=== PATIENT | male | born 1960 | race American Indian/Alaskan Native ===

== ENCOUNTER 2016-09-27 04:54 | Emergency (ER) | payer MEDICAID ==
[2016-09-27 10:20] LABS: Basophils % (Auto) 0.7 % (0.0-1.8); Eosinophils % (Auto) 5.3 % (0.0-4.3); Hematocrit 39.9 % (35.5-45.6); Hemoglobin 12.8 gm/dl (11.8-15.2); Mean Corpuscular HGB Conc 32 % (32-34); Mean Corpuscular Hemoglobin 29 pg (28-32); Mean Corpuscular Volume 89 fl (84-94); Platelet Count 242 K/mm3 (140-440); Red Blood Count 4.46 M/mm3 (3.65-5.03); Red Cell Distribution Width 14.1 % (13.2-15.2)
[2016-09-27 10:31] LABS: Anion Gap 18 mmol/L; Blood Urea Nitrogen 9 mg/dL (9-20); Calcium 9.2 mg/dL (8.4-10.2); Carbon Dioxide 26 mmol/L (22-30); Chloride 99.3 mmol/L (98-107); Glucose 110 mg/dL (75-100); Potassium 4.4 mmol/L (3.6-5.0); Sodium 139 mmol/L (137-145)
[2016-09-27] MEDS ORDERED: TORADOL IM ONE (10:38)
[2016-09-27 10:39] VITALS: BP 143/98
--- NOTE | 2016-09-27 10:42 | Emergency Department Report ---
HPI - General Chief Complaint: Extremity Injury, Upper Time Seen by Provider: 09/27/16 10:31 - HPI HPI: This is a 56-year-old Afro[place] male who presents to the emergency department with a three-day history of pain to the left side of his back that radiates down the left arm. Patient says it feels like previous muscle spasms or muscle pull but this one has been going on longer than his previous episodes. He has tried some Tylenol, supplements, and a previous muscle relaxer and has not received much relief. He denies any restriction to range of motion. He says he woke up with this pain 3 days ago and does not know of any significant trauma. He says he gets this pins and needles feeling that goes down into the fingertips. He denies any chest pain, shortness breath, nausea, vomiting, fever or diaphoresis. He is a former smoker but otherwise denies any past medical history. He does not have a primary care doctor. No recent travel or sick contacts at home. He denies any headache, facial droop, vision change, slurred speech or any neurological deficits. Patient drove himself in to be seen today. ED Past Medical Hx - Medications Home Medications: Home Medications Medication Instructions Recorded Confirmed Last Taken Type HYDROcodone/APAP 5-325 [[place] 1 each PO Q6HR PRN #14 tablet 09/27/16 Unknown Rx 5/325] ED Review of Systems ROS: Stated complaint: LEFT SIDE NUMBNESS Other details as noted in HPI Comment: All other systems reviewed and negative Constitutional: denies: chills, fever Eyes: denies: eye pain, eye discharge, vision change ENT: denies: ear pain, throat pain Respiratory: denies: cough, shortness of breath, wheezing Cardiovascular: denies: chest pain, palpitations Gastrointestinal: denies: abdominal pain, nausea, diarrhea Musculoskeletal: back pain, myalgia. denies: joint swelling Skin: denies: rash, lesions Neurological: paresthesias. denies: headache Physical Exam - Physical Exam Vital Signs: Vital Signs 09/27/16 05:05 Temperature 97.5 F L Pulse Rate 99 H Respiratory 20 Rate Blood Pressure 140/99 O2 Sat by Pulse 99 Oximetry Physical Exam: GENERAL: The patient is well-developed well-nourished. HEENT: Normocephalic. Atraumatic. Extraocular motions are intact. Patient has moist mucous membranes. Pupils equal reactive to light bilaterally. No nystagmus. Tongue is midline. No facial symmetry. NECK: Supple. Trachea is midline. CHEST/LUNGS: Clear to auscultation. There is no respiratory distress noted. HEART/CARDIOVASCULAR: Regular. There is no tachycardia. There is no gallop rub or murmur. ABDOMEN: Abdomen is soft, nontender. Patient has normal bowel sounds. There is no abdominal distention. SKIN: There is no rash. There is no edema. There is no diaphoresis. NEURO: The patient is awake, alert, and oriented. The patient is cooperative. The patient has no focal neurologic deficits. The patient has normal speech and gait. Cranial nerves II through XII grossly intact. No pronator drift or dysmetria. MUSCULOSKELETAL: There is no tenderness or deformity. There is no limitation range of motion. There is no evidence of acute injury. Muscle strength 5 out of 5 for upper and lower extremity bilaterally. Cap refill less than 2 seconds. Radial pulses +2 over 4 bilaterally. BACK: No midline thoracic or lumbar tenderness to palpation or deformity. Patient has some reproducible tenderness to palpation to the left upper thoracic paraspinal muscles with some associated taut musculature through the trapezius muscle. ED Course Vital Signs 09/27/16 05:05 Temperature 97.5 F L Pulse Rate 99 H Respiratory 20 Rate Blood Pressure 140/99 O2 Sat by Pulse 99 Oximetry ED Medical Decision Making - Lab Data Result diagrams: 09/27/16 09:59 09/27/16 09:59 - EKG Data -: EKG Interpreted by Nd EKG shows normal: sinus rhythm, axis, intervals, QRS complexes, ST-T waves Rate: normal - EKG Data When compared to previous EKG there are: previous EKG unavailable Interpretation: normal EKG - Radiology Data Radiology results: image reviewed interpreted by me: Chest x-ray did not show any acute process. Heart is normal shape and size. No effusions. No pneumothorax. No signs of pneumonia seen. X-ray of the left shoulder does not show any fracture, dislocation, or osseous abnormality or any acute process. - Medical Decision Making 56-year-old male presents to the emergency department with complaint of pain to the left upper back with some radiation down the left arm. Patient's pain is musculoskeletal. It is reproducible to palpation and with certain movements of his left arm and shoulder. Patient says that he feels a click when he moves the arm. EKG is normal without ST elevation TX, ischemia or dysrhythmia. On top of this patient denies any chest pain or shortness of breath. Regarding any concern for stroke, the patient would be a 0 on the NIH stroke scale. He describes more of a paresthesia with possible muscle spasm or nerve impingement. Patient's labs have been unremarkable no signs of infection, electrolytes abnormalities, renal insufficiency, glucose abnormalities and the patient has a negative troponin. An x-ray was done of the shoulder and chest did not show any fractures, dislocations, pneumothorax, pneumonia or malignancy. Patient was given a shot of Toradol for his discomfort to start. He will be given some pain medication for home but the patient drove himself in to be seen. He says he has established care with an orthopedist but will be given a referral for primary care clinics in the area. Patient will return to the emergency department with any worsening of his symptoms or any acute distress. - Differential Diagnosis muscle spasm, nerve impingement, TX, costochondritis Critical Care Time: No Critical care attestation.: If time is entered above; I have spent that time in minutes in the direct care of this critically ill patient, excluding procedure time. ED Disposition Clinical Impression: Musculoskeletal pain, Paresthesia Back pain Qualifiers: Back pain location: thoracic back pain Chronicity: acute Back pain laterality: left Qualified Code(s): M54.6 - Pain in thoracic spine Arm pain Qualifiers: Laterality: left Qualified Code(s): M79.602 - Pain in left arm Disposition: DISCHARGED TO HOME OR SELFCARE Is pt being admited?: No Does the pt Need Aspirin: No Condition: Stable Instructions: Back Pain (ED), Paresthesia (ED) Additional Instructions: Please follow-up with your orthopedist. I've given you multiple referrals for primary care physicians as well. Return to the emergency department with any worsening of her symptoms, problems moving or walking, slurred speech, any neurological deficits, or any acute distress. You've been prescribed a medication that is sedating. Therefore this medication cannot be mixed with alcohol, or taken prior to driving, working, or being responsible for children. Prescriptions: HYDROcodone/APAP 5-325 [[place] 5/325] 1 each PO Q6HR PRN #14 tablet PRN Reason: Pain Referrals: PRIMARY CARE, [Primary Care Provider] - 3-5 Days ERIKA FREGOSO MD [Staff Physician] - 3-5 Days [facility] [Outside] - 3-5 Days [facility] [Outside] - 3-5 Days [facility] [Outside] - 3-5 Days Time of Disposition: 11:09
--- NOTE | 2016-09-27 11:44 | XRay Report ---
ROUTINE CHEST, TWO VIEWS: HISTORY: chest pain. The trachea, heart, mediastinal contour, lung burroughs and bony thorax are unremarkable. IMPRESSION: Unremarkable chest x-ray.
--- NOTE | 2016-09-27 13:07 | XRay Report ---
Left shoulder 3 views: History: Shoulder pain. Findings Suspicion of widening of the a.c. joint. No fracture dislocation or soft tissue calcification. Glenohumeral joint appears normal. Impression: Suspicion of widening of a.c. joint.
== END 2016-09-27 11:17 | disposition home or self-care (01) ==
LOC: ED 04:54
DX: M54.6 Pain in thoracic spine (principal); M79.602 Pain in left arm; M79.1 Myalgia; R20.9 Unspecified disturbances of skin sensation; Z87.891 Personal history of nicotine dependence
CPT/HCPCS: 36415; 71020; 73030; 80048; 84484; 85025; 93005; 93010; 96372; 99284; J1885

== ENCOUNTER 2020-09-20 13:29 | Emergency (ER) | payer MEDICAID ==
[2020-09-20 13:49] VITALS: BP 198/115
[2020-09-20] MEDS ORDERED: IBUPROFEN 800 MG TAB PO ONE (14:14)
[2020-09-20] MEDS ORDERED: LIDOCAINE (1%) 10 MG/1 ML VIAL 20 ML MDV INFILTRATI ONE (14:15)
--- NOTE | 2020-09-20 14:17 | Emergency Department Report ---
ED Upper Extremity Inj HPI - General Chief Complaint: Extremity Injury, Upper Stated Complaint: FINGER INJURY/LAC Time Seen by Provider: 09/20/20 14:13 Source: patient Mode of arrival: Ambulatory Limitations: No Limitations - History of Present Illness Initial Comments: The patient was evaluated in the emergency department for symptoms described in the history of present illness. He/she was evaluated in the context of the global COVID-19 pandemic, which necessitated consideration that the patient might be at risk for infection with the virus that causes COVID-19. Institutional protocols and algorithms that pertain to the evaluation of patients at risk for COVID-19 are in a state of rapid change based on information released by regulatory bodies including the CDC and federal and state organizations. These policies and algorithms were followed during the patient's care in the emergency department. Please note that these policies, procedures and recommendations changed on a rapid basis. 60-year-old -[place] male presents to the emergency room reporting he has slammed the door of his car on his left hand hands injured his left index finger and second finger. Patient reports he is right-handed. This happened at home. 1 hour prior to arrival. He is right-handed. He denies any other past medical history but reports her surgical history of bilateral hip replacement. Patient does not know when the last time he had a tetanus shot. MD Complaint: Injury to:: left, finger Onset/Timin -: hour(s) ( [employer]) Other Extremity Injury: Fingers: Left (1st and 2nd) Other Injuries: none Handedness: right Place: home Severity scale (0 -10): 10 Context: injury Associated Symptoms: denies other symptoms Treatments Prior to Arrival: bandage - Related Data Previous Rx's Medication Instructions Recorded Last Taken Type Clindamycin [Clindamycin CAP] 300 mg PO Q8H 10 Days #30 cap 09/20/20 Unknown Rx HYDROcodone/APAP 5-325 [[place] 1 each PO Q6HR PRN #12 tablet 09/20/20 Unknown Rx 5-325 mg TAB] Ibuprofen [Motrin 800 MG tab] 800 mg PO Q8HR PRN #30 tablet 09/20/20 Unknown Rx Allergies Allergy/AdvReac Type Severity Reaction Status Date / Time No Known Allergies Allergy Verified 09/27/16 05:10 ED Review of Systems ROS: Stated complaint: FINGER INJURY/LAC Other details as noted in HPI Comment: All other systems reviewed and negative ED Past Medical Hx - Past Medical History Previous Medical History?: Yes Hx Arthritis: Yes - Surgical History Past Surgical History?: Yes Additional Surgical History: bilat hip replacement. R wrist - Social History Smoking Status: Current Every Day Smoker Substance Use Type: Prescribed - Medications Home Medications: Home Medications Medication Instructions Recorded Confirmed Last Taken Type Clindamycin [Clindamycin CAP] 300 mg PO Q8H 10 Days #30 cap 09/20/20 Unknown Rx HYDROcodone/APAP 5-325 [[place] 1 each PO Q6HR PRN #12 tablet 09/20/20 Unknown Rx 5-325 mg TAB] Ibuprofen [Motrin 800 MG tab] 800 mg PO Q8HR PRN #30 tablet 09/20/20 Unknown Rx ED Physical Exam - General Limitations: No Limitations General appearance: alert, in distress - Head Head exam: Present: atraumatic, normocephalic - Eye Eye exam: Present: normal appearance - ENT ENT exam: Present: mucous membranes moist - Neck Neck exam: Present: normal inspection, full ROM - Respiratory Respiratory exam: Absent: accessory muscle use - Cardiovascular Cardiovascular Exam: Present: regular rate, normal rhythm. Absent: systolic murmur, diastolic murmur, rubs, gallop - Expanded Upper Extremity Exam Left Shoulder Exam: Present: normal inspection Upper Arm exam: Present: normal inspection Elbow exam: Present: normal inspection Forearm Wrist exam: Present: normal inspection Hand Wrist exam: Present: tenderness, laceration (Through the nailbed), subungual hematoma Neuro motor exam: Present: wrist extension intact, thumb opposition intact, thumb IP flexion intact, thumb adduction intact, fingers 2-5 abduction intact Neurosensory exam: Present: 2-point discrimination - Back Exam Back exam: Present: normal inspection - Neurological Exam Neurological exam: Present: alert, oriented X3, normal gait - Psychiatric Psychiatric exam: Present: normal affect, normal mood - Skin Skin exam: Present: warm, dry, intact, normal color. Absent: rash ED Course Vital Signs 09/20/20 09/20/20 13:48 14:48 Temperature 98.5 F Pulse Rate 75 Respiratory 22 20 Rate Blood Pressure 198/115 O2 Sat by Pulse 98 Oximetry - Laceration /Wound Repair Left Finger Wound Location: upper extremity Wound Length (cm): 4 Wound's Depth, Shape: into muscle, irregular Wound Explored: no foreign body removed Irrigated w/ Saline (ccs): 500 Betadine Prep?: Yes Anesthesia: 1% Lidocaine Volume Anesthetic (ccs): 12 Wound Debrided: minimal Wound Repaired With: sutures Suture Size/Type: 4:0 Number of Sutures: 10 Layer Closure?: No Number Deep Layer Sutures: 10 Sterile Dressing Applied?: Yes ED Medical Decision Making - Radiology Data Radiology results: report reviewed Patient: URSULA ESCOTO MR#: [id number] 5 : 1960 Acct:[id number] Age/Sex: 60 / M ADM Date: 09/20/20 Loc: ED Attending Dr: Ordering Physician: ANABELA CHANG Date of Service: 09/20/20 Procedure(s): XR finger(s) 1V LT Accession Number(s): [id number] cc: ANABELA CHANG Fluoro Time In Minutes: LEFT FINGER(S) 4 VIEW(S) INDICATION / CLINICAL INFORMATION: injury to 2nd and third digit COMPARISON: None available. FINDINGS: BONES / JOINT(S): Comminuted and displaced fracture involving the tip of the index finger distal phalanx. No dislocation. Small subcortical cysts noted at the base of the index finger proximal phalanx. No significant arthritis. SOFT TISSUES: Soft tissue laceration with swelling and edema noted at the tip of the index finger. ADDITIONAL FINDINGS: None. Signer Name: Danielito Morgan MD Signed: 09/20/2020 3:29 PM Workstation Name: [id number] Transcribed By: Dictated By: DANIELITO MORGAN Electronically Authenticated By: DANIELITO MORGAN Signed Date/Time: 09/20/20 1529 DD/ 1528 TD/TT: - Medical Decision Making 60-year-old -[place] male presents to the emergency room reporting he has slammed the door of his car on his left hand hands injured his left index finger and second finger. Patient reports he is right-handed. This happened at home. 1 hour prior to arrival. He is right-handed. He denies any other past medical history but reports her surgical history of bilateral hip replacement. Patient does not know when the last time he had a tetanus shot. x-ray of left finger ibuprofen 600 mg. will need to suture. X-ray shows a comminuted fracture of the left index finger. Patient will be given Ancef IV and discharged home on antibiotics. Patient will be discharged home on clindamycin 300 mg 3 times a day for 10 days. Patient is to return back to the emergency room and 12 to 14 days to have sutures removed. Patient can have Tylenol or ibuprofen for pain management. Patient is to follow-up with orthopedics. Critical care attestation.: If time is entered above; I have spent that time in minutes in the direct care of this critically ill patient, excluding procedure time. ED Disposition Clinical Impression: Finger fracture, left Qualifiers: Encounter type: initial encounter Finger: index finger Fracture type: open Phalanx: distal Fracture alignment: displaced Qualified Code(s): S62.631B - Displaced fracture of distal phalanx of left index finger, initial encounter for open fracture Laceration of index finger Qualifiers: Encounter type: initial encounter Damage to nail status: with damage Foreign body presence: without foreign body Laterality: left Qualified Code(s): S61.311A - Laceration without foreign body of left index finger with damage to nail, initial encounter HTN (hypertension) Qualifiers: Hypertension type: unspecified Qualified Code(s): I10 - Essential (primary) hyp ertension Disposition: DC- TO HOME OR SELFCARE Is pt being admited?: No Does the pt Need Aspirin: No Condition: Stable Instructions: Laceration Care, Adult, Finger Fracture, Adult, [id number], Hypertension (ED) Additional Instructions: Complete antibiotics as prescribed. Pain medication as needed. Do not operate heavy machinery while taking [place]. Please keep wound clean and dry. You need to return back to the emergency room in 12 to 14 days to have sutures removed. Please follow-up with the orthopedic provider for your fracture. Please follow- up with your primary care provider to have your blood pressure reevaluated. Prescriptions: Clindamycin [Clindamycin CAP] 300 mg PO Q8H 10 Days #30 cap Ibuprofen [Motrin 800 MG tab] 800 mg PO Q8HR PRN #30 tablet PRN Reason: Pain , Severe (7-10) HYDROcodone/APAP 5-325 [[place] 5-325 mg TAB] 1 each PO Q6HR PRN #12 tablet PRN Reason: Pain Referrals: ALLYN HUNT MD [Primary Care Provider] - 3-5 Days ROYA RODRIGUEZ MD [Staff Physician] - 3-5 Days JOVANY MALONEY MD [Staff Physician] - 3-5 Days Forms: Work/School Release Form(ED)
[2020-09-20] MEDS ORDERED: SODIUM CHLORIDE 0.9% IRR 500 ML BOTTLE IR ONE (14:35)
--- NOTE | 2020-09-20 15:34 | XRay Report ---
LEFT FINGER(S) 4 VIEW(S) INDICATION / CLINICAL INFORMATION: injury to 2nd and third digit COMPARISON: None available. FINDINGS: BONES / JOINT(S): Comminuted and displaced fracture involving the tip of the index finger distal phal anx. No dislocation. Small subcortical cysts noted at the base of the index finger proximal phalanx. No significant arthritis. SOFT TISSUES: Soft tissue laceration with swelling and edema noted at the tip of the index finger. ADDITIONAL FINDINGS: None. Signer Name: Danielito Apple MD Signed: 09/20/2020 3:29 PM Workstation Name: [id number]
== END 2020-09-20 18:01 | disposition home or self-care (01) ==
LOC: ED 13:29
DX: S61.211A Laceration without foreign body of left index finger without damage to nail, initial encounter (principal); S62.631A Displaced fracture of distal phalanx of left index finger, initial encounter for closed fracture; I10 Essential (primary) hypertension; M19.91 Primary osteoarthritis, unspecified site; F17.200 Nicotine dependence, unspecified, uncomplicated; Z98.890 Other specified postprocedural states; Z79.1 Long term (current) use of non-steroidal anti-inflammatories (NSAID); Z79.2 Long term (current) use of antibiotics; Z79.899 Other long term (current) drug therapy; X58.XXXA Exposure to other specified factors, initial encounter; Y93.89 Activity, other specified; Y92.89 Other specified places as the place of occurrence of the external cause; Y99.8 Other external cause status
CPT/HCPCS: 12002; 73140; 96365; 99283; J0690